=== PATIENT | female | born 1965 | race Caucasian/White ===

== ENCOUNTER 2019-02-01 18:38 | Inpatient (IN) | payer BC ==
[2019-02-01] MEDS ORDERED: nitroGLYCERIN DRIP* 25,000 MCG in PREMIX* 0 ML IV ONE (19:05)
[2019-02-01] MEDS ORDERED: Ondansetron INJ* 2 MG/ML VIAL IV ONE (19:05)
[2019-02-01] MEDS ORDERED: Heparin for STEMI(*) 5,000 UNITS/ML 1 ML VIAL IV ONE (19:05)
[2019-02-01] MEDS ORDERED: Morphine INJ* 10 MG/ML 1 ML CARPUJECT IV ONE (19:05)
[2019-02-01] MEDS ORDERED: Ticagrelor* 90 MG TAB PO ONE (19:05)
[2019-02-01] MEDS ORDERED: NS 0.9% 1000 ML** 1,000 ML IV ONE (19:05)
--- NOTE | 2019-02-01 19:06 | ED ---
HPI Chest Pain - HPI Summary HPI Summary: The patient is a 53 y/o F presenting to [facility] accompanied by with a chief complaint of mid-sternal CP that radiates to her anterior neck and throat onset approximately a month ago with gradual worsening of intermittent episodes of heaviness. She states that she has visited her PCP twice for the pain, who told her to come here; she has not yet had an appointment with her hospital mortician , but she has one scheduled soon. Today, she has had difficulty walking from her car into the building to work without stopping. She is currently in pain, rated 5/10 in severity. There are no aggravating or alleviating factors. She additionally c/o SOB, nausea without vomiting, mild left arm pain, and dizziness. She denies abd pain. No hx of diabetes or HTN, but has hx of DVT. FHx of cardiac disease. Nonsmoker. She is currently on abx for bronchitis and sinus infection from last week. - History of Current Complaint Chief Complaint: EDChestPainROMI Hx Obtained From: Patient Onset/Duration: Started Weeks Ago - osnet one month, Still Present Timing: Intermittent, Lasting Days - gradual worsening Initial Severity: Mild Current Severity: Moderate Pain Intensity: 5 Pain Scale Used: 0-10 Numeric Chest Pain Location: Mid Sternal Chest Pain Radiates: Yes Chest Pain Radiates To:: Neck - anterior Character: Heaviness Aggravating Factor(s): Nothing Alleviating Factor(s): Nothing Associated Signs and Symptoms: Positive: Chest Pain, Dizziness, Shortness of Breath, Nausea, Other: - mild pain in left arm. Negative: Abdominal Pain, Vomiting - Risk Factors Pulmonary Embolism Risk Factors: DVT - Allergy/Home Medications Allergies/Adverse Reactions: Allergies Allergy/AdvReac Type Severity Reaction Status Date / Time No Known Allergies Allergy Verified 01/13/19 10:40 Home Medications: Home Medications Doxycycline Hyclate 100 mg PO DAILY 02/01/19 [History Confirmed 02/01/19] Ventolin HFA Inhaler* 90 mcg INH Q6HR PRN 02/01/19 [History Confirmed 02/01/19] PMH/Surg Hx/FS Hx/Imm Hx Endocrine/Hematology History: Denies: Hx Diabetes Cardiovascular History: Reports: Hx Deep Vein Thrombosis - right side Denies: Hx Hypertension Respiratory History: Reports: Other Respiratory Problems/Disorders - OCCASIONAL ALLERGY, USES INHAILER NEEDED Musculoskeletal History: Reports: Other Musculoskeletal History - bunion - Cancer History Hx Chemotherapy: No Hx Radiation Therapy: No - Surgical History Surgery Procedure, Year, and Place: blood clot removal Infectious Disease History: No Infectious Disease History: Denies: Traveled Outside the [place] in Last 30 Days - Family History Known Family History: Positive: Cardiac Disease, Blood Disorder - blood clots, Other - Non-Hodgkin's lymphoma Negative: Hypertension, Diabetes - Social History Occupation: Employed Full-time Alcohol Use: Occasionally Hx Substance Use: No Substance Use Type: Reports: None Hx Tobacco Use: No Smoking Status (MU): Never Smoked Tobacco Review of Systems Positive: Chest Pain - mid-sternal radiating to anterior neck/throat Positive: Shortness Of Breath Positive: Nausea. Negative: Abdominal Pain, Vomiting Positive: Other - mild pain in arm Neurological: Other - dizziness All Other Systems Reviewed And Are Negative: Yes Physical Exam - Summary Physical Exam Summary: Appearance: Well-appearing, Well-nourished, appears to be uncomfortable in bed Skin: Warm, dry, no obvious rash Eyes: sclera anicteric, no conjunctival pallor ENT: mucous membranes moist, pharynx appears normal Neck: Supple, nontender Respiratory: Clear to auscultation, no signs of respiratory distress Cardiovascular: Normal S1, S2. No murmurs. Normal distal pulses in tibial and radial bilaterally. Abdomen: Soft, nontender, normal active bowel sounds present Musculoskeletal: Normal, Strength/ROM Intact Neurological: A&Ox3, awake and alert, mentation is normal, speech is fluent and appropriate Psychiatric: affect is normal, does not appear anxious or depressed Triage Information Reviewed: Yes Vital Signs On Initial Exam: Initial Vitals Temp Pulse Resp BP Pulse Ox 97.3 F 105 20 150/99 100 02/01/19 18:41 02/01/19 18:41 02/01/19 18:41 02/01/19 18:41 02/01/19 18:41 Vital Signs Reviewed: Yes Diagnostics - Vital Signs Vital Signs Temp Pulse Resp BP Pulse Ox 02/01/19 18:41 97.3 F 105 20 150/99 100 - Laboratory Result Diagrams: 02/02/19 05:28 02/02/19 05:28 Lab Statement: Any lab studies that have been ordered have been reviewed, and results considered in the medical decision making process. - Radiology CXR Radiology Interpretation Completed By: Radiologist Summary of Radiographic Findings: No active process. ED physician has reviewed this report. - EKG 18:49 Cardiac Rate: NL - 89 BPM EKG Rhythm: Sinus Rhythm EKG Comparison: Other - Change from previous EKG on 01/13/2019. Summary of EKG Findings: NSR at 89 BPM. T wave inversions and slight ST elevations in v1 and v2. 1906 Cardiac Rate: NL - 95 BPM EKG Rhythm: Sinus Rhythm EKG Comparison: No Significant Change - No change from previous EKG on 2018, at 1849. Summary of EKG Findings: T wave inversions and slight ST elevations in v1 and v2. Re-Evaluation - Re-Evaluation First Eval Re-Evaluation Time: 19:20 Change: Unchanged Comment: The patient was still having chest pain with some lightheadedness while hospital monitor was alarming. She felt better after the episode. She accepts admission. Chest Pain Course/Dx - Course Course Of Treatment: The patient is a 53 y/o F with a chief complaint of mid- sternal CP that radiates to her anterior neck and throat onset approximately a month ago with gradual worsening of intermittent episodes of heaviness. Today, she has had difficulty walking from her car into the building to work without stopping. There are no aggravating or alleviating factors. She additionally c/o SOB, nausea without vomiting, mild left arm pain, and dizziness. She denies abd pain. No hx of diabetes or HTN, but has hx of DVT. FHx of cardiac disease. Nonsmoker. PCP told her to come to ED; she has upcoming appt with hospital mortician. Upon physical examination, the patient seemed to appear uncomfortable. In the ED course, the patient was administered Ns, Aspirin, NTG, Heparin, Morphine, Zofran, and Brilinta. I spoke with Dr. Massey, cardiology at 1910, who states that the patient is having a STEMI given T wave inversions and ST elevations in v1 and v2 on the first EKG at 1849. At 191, STEMI was called. Follow up EKG at 190 showed no change from first. Blood work reveals elevated CK-MB and troponin of 0.53. CXR reveals no active process. Dr. Joe accepts the patient for admission at 191. The patient is diagnosed with STEMI. She agrees and understands the need for admission to [facility] at this time. Critical care time of 30 minutes. - Diagnoses Provider Diagnoses: STEMI (ST elevation myocardial infarction) During the Visit The Following Alert/Code Occurred: STEMI - called at 1910 - Provider Notifications Discussed Care Of Patient With: Bryan Massey - cardiology Time Discussed With Above Provider: 19:10 Instructed by Provider To: Other - I consulted with Dr. Massey concerning the patient's EKG; he states the patient is having a STEMI. I also consulted with Dr. Joe, who accepts the patient for admission at 191. - Critical Care Time Critical Care Time: 30-74 min - Critical Care Time of 30 minutes. Discharge - Sign-Out/Discharge Documenting (check all that apply): Patient Departure - Patient will be admitted to [facility] for further care under Dr. Degroot. All imaging exams completed and their final reports reviewed: Yes Patient Received Moderate/Deep Sedation with Procedure: No - Discharge Plan Condition: Guarded Disposition: ADMITTED TO [facility] - Billing Disposition and Condition Condition: GUARDED Disposition: Admitted to [facility] - Attestation Statements Document Initiated by Reyna: Yes Documenting Scribe: Funmilayo Anderson Provider For Whom Reyna is Documenting (Include Credential): Dr. Marek Ca MD Scribe Attestation: I, katharine Newed for Dr. Marek Ca MD on 02/02/19 at 0604. Scribe Documentation Reviewed: Yes Provider Attestation: The documentation as recorded by the Funmilayo jade accurately reflects the service I personally performed and the decisions made by me, Dr. Marek Ca MD Status of Scribe Document: Viewed
[2019-02-01] MEDS ORDERED: Morphine 10 MG/ML VIAL (1 ml) ONE (19:12)
[2019-02-01] MEDS ORDERED: Nitroglycerin TAB 0.4 MG* 0.4 MG TAB ONE (19:14)
[2019-02-01] MEDS ORDERED: fentaNYL* 50 MCG/ML 2 ML VIAL (100 MCG VIAL) ONE (19:19)
[2019-02-01] MEDS ORDERED: Midazolam* 1 MG/ML 5 ML VIAL (5 MG) ONE (19:19)
[2019-02-01] MEDS ORDERED: Iohexol 350 (CONTRAST) 200 ML MDV IV ONE ×2 (19:20→19:21)
[2019-02-01] MEDS ORDERED: Lidocaine 1% INJ* 10 MG/ML 30 ML SDV ONE (19:20)
[2019-02-01] MEDS ORDERED: nitroGLYCERIN DRIP* 25,000 MCG/250 ML BTL ONE (19:20)
[2019-02-01] MEDS ORDERED: Heparin 2 UNITS/ML IVPREMIX* 3,000 UNIT/1,500 ML BAG IV ONE (19:21)
[2019-02-01] MEDS ORDERED: VERAPAMIL 2.5 MG/ML 2 ML VIAL ** 5 mg/2 ml ONE (19:21)
--- OUTSIDE RECORDS SUMMARY | 2019-02-01 19:21 | XMS REPORT | Continuity of Care Document ---
:1965 External Reference #:[id number] Author Name Sammie Mullins M.D. Address [address] [place] [address] Care Team Providers Name Role Phone Tapan Gould M.D. Primary Care Physician Unavailable Payers Date Identification Numbers Payment Provider Subscriber Effective: 2002 Policy Number: [id number] Iraida Gil Expires: 2012 Group Name: [employer] [address] [address] PayID: [id number] WESLEY Munroe [id number] Effective: 2012 Policy Number: [id number] Iraida Gil Expires: 2013 Group Name: [employer] [address] [address] PayID: [id number] W[place]LEY Munroe [id number] Effective: 2013 Policy Number: [id number] Iraida Gil Group Name: [employer] [address] [address] PayID: [id number] WESLEY Munroe [address] Advance Directives Description No Information Available Problems Date Description Provider Status Onset: 10/15/2011 Deep venous thrombosis of Ashley Grissom M.D. Active peroneal vein Family History Date Family Member(s) Observation Comments Father Unknown Mother Diabetes CONTROLLED WITH DIET AND EXERCISE Maternal Grandmother DVT with many clots in legs, arms and PE's. 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 with full Blegen, glass of M.D. water x 10 days for bronchitis/ sinusitis Ventolin HFA 01/18/ Active Aerosol 108(90Bas 18uni Inhale 2 Tapan 2018 e) ts Puffs Every Gould, mcg/Act 4-6 Hours as M.D. Needed For Wheezing Or Shotness Of Breath Fexofenadine 05/23/ Active Tablets 180mg 90tab Take One Tapan HCL 2009 s Tablet By Gould, Mouth Daily M.D. Fluoxetine HCL / Active Capsules 20mg Take One Unknown 0000 Capsule By Mouth Every Day Azithromycin 11/27/ Hx Tablets 250mg 6tabs 2 tabs J06.9 [facility] 2018 - today. 1 tab Shortle, 01/13/ daily for [employer] 2019 the following 4 days. Cheratussin ac 11/27/ Hx Solution 100-10mg/ 473ml 10 J06.9 [facility] 2018 - 5ML milliliters Shortle, 01/13/ every 4 to 6 [employer] 2019 hours as needed; maximum daily dose: 60 ml/day Azithromycin 01/07/ Hx Tablets 250mg 6tabs take 2 J18.9 Angelique 2016 - tablets Roxy, 01/13/ today then 1 [facility] 2019 tablet daily for the next 4 days Tessalon 05/09/ Hx Capsules 100mg 30cap take one J20.9 Tapan Sánchez 2015 - s capsule by Bryanna, 08/07/ mouth every M.D. 2015 6 hours as needed (cough) Azithromycin 05/09/ Hx Tablets 250mg 6tabs 2 by mouth J20.9 Tapan 2015 - every day Bryanna, 08/07/ day 1, then M.D. 2015 1 by mouth every day days 2-5 Guaifenesin-Co 05/09/ Hx Syrup 100-10mg/ 240ml 1-2 teaspoon J20.9 Angelique sethi 2015 - 5ML by mouth Roxy, 11/27/ every 4 [facility]ACT[facility] 2018 hours as needed Asmanex 10/06/ Hx Aerosol 220mcg/In 1unit 1 inhalation [facility] 2014 - h s once daily Shortle, Metered Doses 01/13/ in the [employer] 2019 evening Asmanex 10/06/ Hx Aerosol 220mcg/In Angelique Twisthaler 14 2014 - h Roxy, Metered Doses 11/27/ [facility]SE [facility]ACTITION[facility] 2018 Augmentin 09/15/ Hx Tablets 875-125mg 20tab 1 tab by J06.9 Jg 2014 - s mouth twice Michael 10/06/ daily for III, 2014 ten days [facility]ACT[facility] Azithromycin 09/05/ Hx Tablets 250mg 6tabs take 2 tab J06.9 Jg 2015 - by mouth on [place] 10/06/ day 1 III2014 followed by [facility]SE [facility]ACTITION[facility] 1 tab by mouth daily for 4 additional days Cheratussin ac 09/05/ Hx Syrup 100-10mg/ 118ml 1-2 teaspoon J06.9 Jg 2015 - 5ML by mouth [place] 10/06/ every 6 III, 2015 hours as [facility] NURSE PRACTITION[facility]-C needed for cough Prednisone 03/30/ Hx Tablets 50mg 5tabs one pill by Jg 2014 - mouth daily Michael 10/06/ for 5 days III, 2014 [facility]SE [facility]ACT[facility] Proair HFA 03/23/ Hx Aerosol 108(90Bas 1unit 2 puffs Tapan 2013 - ) s every 4-6 Gould, 01/13/ mcg/Act hours as M.D. 2019 needed wheezing or shortness of breath Guaifenesin/Co 03/16/ Hx Syrup 100-10mg/ 240ml 1 - 2 466.0 Angelique sethi 2013 - 5ML teaspoon po Roxy, 10/06/ q 4 hours [facility] NURSE PRACTITION[facility]-C 2014 prn cough, causes drowsiness Amoxicillin/Po 09/23/ Hx Tablets 875-125mg 20tab take 1 Angelique smith 2011 - s tablet bid x Roxy, Clavulanate 10/06/ 10 days [facility]SE [facility]ACTITION[facility]-C 2015 Benzonatate 09/16/ Hx Capsules 200mg 30cap one po tid 466.0 Angelique 2011 - s prn cough Roxy, 10/06/ [facility]SE [facility]ACTITION[facility] 2015 Coumadin 10/30/ Hx Tablets 5mg 50tab 5mg M,W,F Tapan 2010 - s and 7.5mg Bryanna, 10/06/ others Or as M.D. 2015 Directed Lovenox 10/22/ Hx Solution 60mg/0.6M 10uni 60 mg sq bid Tapan 2010 - L ts Bryanna, 10/06/ M.D. 2015 Fluticasone 09/19/ Hx Suspension 50mcg/Act 16uni use 1-2 Tapan Propionate 2010 - ts sprays in Gould, 01/13/ each nostril M.D. 2019 once daily as needed Ranitidine HCL 07/31/ Hx Capsules 150mg 60cap 1 po bid prn 564.1 Dania 2009 - s stomach R. Storm, 10/06/ pain/bloatin [facility] NURSE PRACTITIONER-C 2015 g Flonase 09/24/ Hx Suspension 50mcg/Act 1mont 1-2 Sprays Dania 2006 - h Each Nostril R. Storm, 09/19/ qd prn [facility] NURSE PRACTITIONER-C 2010 Albuterol 05/12/ Hx Aerosol 90mcg/Dos 1unit 2 Puffs Q4HR Tapan 2007 - e s prn Bryanna, 07/31/ M.D. 2009 Fexofenadine 04/10/ Hx Tablets 180mg 90tab 1 qd Tapan 2006 - s Bryanna, 05/23/ M.D. 2009 Flonase NS 04/03/ Hx [place] 50mcg 3unit 1-2 sprays Tapan 2004 - s each nostril Bryanna, 09/24/ qd M.D. 2007 Zithromax 11/10/ Hx Tablets 500mg 7tabs one po qd Sammie 2003 - for 7 days P. 04/03/ for possible Blegen, 2005 pertussis M.D. coverage Robitussin A-c 11/10/ Hx Syrup 100mg;10m 4Oz one -two Sammie 2003 - g/5ML teaspoons po P. 04/03/ q 4hrs prn Blegen, 2005 cough- M.D. causes drowsiness Tessalon 11/07/ Hx Capsules 200mg 30cap use 1 cap up Angelique 2004 - s to tid for Moizdarlyn, 05/12/ cough M.D. 2006 Cipro 09/05/ Hx Tablets 250mg 6tabs One bid X 3 Tapan 2003 - Days Gould, 10/05/ M.D. 2003 Clarinex 11/25/ Hx 5mg 30uni one po qd Tapan 2002 - ts Gould, 04/10/ M.D. 2005 Claritin 11/16/ Hx Tablets 10mg 30tab One qd Angelique 2000 - s Marta, 11/25/ M.D. 12/13/ Hx Tablets 1-20mg-lizette Johnson, 0000 - g Unique 2014 Azithromycin / Hx Tablets 250mg 6tabs take 2 466.0 Angelique 0000 - tablets Roxy, then 1 [facility] NURSE PRACTITIONER-C 2015 tablet daily for the next 4 days Medications Administered in Office Medication Date Status Form Strength Qnty SIG Indications Ordering Provider TB,Intradermal Administered Injection Angelique (PPD, Mantoux) 002 Olya Lozano Immunizations CPT Code Status Date Vaccine Lot # [id number] Given 08/23/2015 Influenza Virus Vaccine, Quadrivalent, 3 Yr > Quad, Preserv Free [id number] Given 09/12/2011 Tdap (Adacel) [id number] Given 09/07/2002 Influenza Virus Vaccine, 3 Yrs And Above Vital Signs Date Vital Result Comment 01/25/2019 11:20am Weight 143.00 lb Weight 64.865 kg BP Systolic 120 mmHg BP Diastolic 90 mmHg Heart Rate 112 /min Body Temperature 97.1 F Respiratory Rate 24 /min O2 % BldC Oximetry 99 % Peak Flow Meter 350 01/13/2019 8:24am Weight 143.00 lb Weight 64.865 kg BP Systolic 110 mmHg BP Diastolic 70 mmHg Heart Rate 92 /min Body Temperature 97.8 F Respiratory Rate 16 /min O2 % BldC Oximetry 99 % 11/27/2017 3:38pm Weight 149.00 lb Weight 67.586 kg BP Systolic 128 mmHg BP Diastolic 78 mmHg Heart Rate 90 /min Body Temperature 98.9 F Respiratory Rate 15 /min O2 % BldC Oximetry 98 % 01/07/2017 4:50pm Weight 144.00 lb Weight 65.318 kg Heart Rate 104 /min Body Temperature 97.3 F Respiratory Rate 16 /min O2 % BldC Oximetry 98 % 05/09/2016 4:49pm Weight 141.00 lb Weight 63.958 kg BP Systolic 100 mmHg BP Diastolic 70 mmHg Heart Rate 100 /min Body Temperature 98.4 F O2 % BldC Oximetry 99 % 10/06/2015 4:28pm Weight 136.00 lb Weight 61.690 kg BP Systolic 124 mmHg BP Diastolic 76 mmHg Heart Rate 76 /min Height 63 inches 5'3" BMI (Body Mass Index) 24.1 kg/m2 09/15/2015 4:33pm Weight 137.00 lb Weight 62.143 kg BP Systolic 86 mmHg BP Diastolic 60 mmHg Heart Rate 102 /min Body Temperature 98.2 F O2 % BldC Oximetry 99 % 09/05/2015 5:01pm Weight 140.00 lb Weight 63.504 kg BP Systolic 140 mmHg BP Diastolic 84 mmHg Heart Rate 64 /min Body Temperature 97.8 F O2 % BldC Oximetry 98 % 03/30/2014 4:43pm Weight 139.00 lb Weight 63.050 kg BP Systolic 132 mmHg BP Diastolic 80 mmHg Heart Rate 108 /min Body Temperature 97.6 F O2 % BldC Oximetry 98 % 03/16/2014 3:51pm Weight 137.00 lb Weight 62.143 kg BP Systolic 140 mmHg BP Diastolic 84 mmHg Heart Rate 92 /min O2 % BldC Oximetry 97 % 08/30/2013 4:30pm Weight 138.00 lb Weight 62.597 kg BP Systolic 110 mmHg BP Diastolic 70 mmHg Heart Rate 72 /min 08/04/2013 4:39pm Weight 138.00 lb Weight 62.597 kg BP Systolic 100 mmHg BP Diastolic 66 mmHg Heart Rate 88 /min Height 63 inches 5'3" BMI (Body Mass Index) 24.4 kg/m2 05/17/2013 4:36pm Weight 141.00 lb Weight 63.958 kg BP Systolic 102 mmHg BP Diastolic 80 mmHg Heart Rate 84 /min 04/27/2013 4:28pm Weight 144.00 lb Weight 65.318 kg BP Systolic 112 mmHg BP Diastolic 64 mmHg Heart Rate 76 /min 09/16/2012 4:25pm Weight 144.00 lb Weight 65.318 kg BP Systolic 110 mmHg BP Diastolic 76 mmHg Heart Rate 108 /min Body Temperature 97.9 F O2 % BldC Oximetry 99 % 10/24/2011 11:51am Weight 138.00 lb Weight 62.597 kg BP Systolic 140 mmHg BP Diastolic 70 mmHg Heart Rate 116 /min Body Temperature 98.9 F 10/15/2011 12:19pm Weight 140.00 lb With Leg Brace Weight 63.504 kg BP Systolic 110 mmHg BP Diastolic 80 mmHg Heart Rate 104 /min Body Temperature 98.3 F 09/12/2011 4:29pm Weight 138.00 lb Weight 62.597 kg BP Systolic 118 mmHg BP Diastolic 82 mmHg Heart Rate 100 /min Body Temperature 98.9 F Height 62.75 inches 5'2.75" BMI (Body Mass Index) 24.6 kg/m2 07/31/2010 4:05pm Weight 130.00 lb Weight 58.968 kg BP Systolic 118 mmHg BP Diastolic 72 mmHg Heart Rate 78 /min 06/09/2007 4:39pm Weight 142.00 lb Weight 64.411 kg BP Systolic 118 mmHg BP Diastolic 68 mmHg Body Temperature 98.0 F oral 05/12/2007 4:56pm Weight 140.00 lb Weight 63.504 kg BP Systolic 110 mmHg BP Diastolic 74 mmHg Heart Rate 92 /min Body Temperature 97.5 F O2 % BldC Oximetry 99 % 05/21/2006 4:30pm Weight 141.00 lb Weight 63.958 kg BP Systolic 110 mmHg BP Diastolic 68 mmHg Heart Rate 72 /min 11/10/2004 11:28am Weight 145.00 lb Weight 65.772 kg Body Temperature 97.3 F 09/05/2004 4:36pm Weight 139.00 lb Weight 63.050 kg BP Systolic 108 mmHg BP Diastolic 60 mmHg Body Temperature 97.5 F 02/20/2004 9:52am Weight 141.00 lb Weight 63.958 kg BP Systolic 136 mmHg BP Diastolic 82 mmHg Heart Rate 103 /min 01/31/2003 4:11pm Weight 141.00 lb Weight 63.958 kg BP Systolic 110 mmHg BP Diastolic 80 mmHg 07/12/2002 4:17pm BP Systolic 110 mmHg BP Diastolic 68 mmHg Heart Rate 72 /min Results Test Date Facility Test Result H/L Range Note Inr/Protime [facility] Inr 0.98 N 0.77- 1.02 9 [phone] Laboratory test [facility] D Dimer < 200 ng /mL N Less Than 1 finding 9 [phone] Quantitative 230 CBC Auto Diff [facility] White Blood Count 7.7 10^3/uL N 3.5-10.8 9 [phone] Red Blood Count 4.65 10^6/uL N 4.00-5.40 Hemoglobin 14.7 g/dL N 12.0-16.0 Hematocrit 42 % N 35-47 Mean Corpuscular Volume 90 fL N 80-97 Mean Corpuscular Hemoglobin 32 pg High 27-31 Mean Corpuscular HGB Conc 35 g/dL N 31-36 Red Cell Distribution Width 13 % N 10.5-15 Platelet Count 243 10^3/uL N 150-450 Mean Platelet Volume 7.9 fL N 7.4-10.4 Abs Neutrophils 5.5 10^3/uL N 1.5-7.7 Abs Lymphocytes 1.8 10^3/uL N 1.0-4.8 Abs Monocytes 0.4 10^3/uL N 0-0.8 Abs Eosinophils 0 10^3/uL N 0-0.6 Abs Basophils 0 10^3/uL N 0-0.2 Abs Nucleated RBC 0 10^3/uL Granulocyte % 71.5 % Lymphocyte % 22.9 % Monocyte % 5.0 % Eosinophil % 0.3 % Basophil % 0.3 % Nucleated Red Blood Cells % 0 Laboratory test 01/13/2019 [facility] Lactic Acid 0.8 mmol/L N 0.5-2.0 2 finding [phone] B-Type Natriuretic Peptide BNP 9 pg/mL <=100 Troponin-I (TnI) 0.00 ng/mL <0.04 3 Comp Metabolic Panel 01/13/2019 [facility] Sodium 138 mmol/L N 135-145 [phone] Potassium 4.2 mmol/L N 3.5-5.0 Chloride 105 mmol/L N 101-111 Co2 Carbon Dioxide 26 mmol/L N 22-32 Anion Gap 7 mmol/L N 2-11 Glucose 107 mg/dL High 70-100 Blood Urea Nitrogen 13 mg/dL N 6-24 Creatinine 0.70 mg/dL N 0.51-0.95 BUN/Creatinine Ratio 18.6 N 8-20 Calcium 9.7 mg/dL N 8.6-10.3 Total Protein 7.1 g/dL N 6.4-8.9 Albumin 4.7 g/dL N 3.2-5.2 Globulin 2.4 g/dL N 2-4 Albumin/Globulin Ratio 2.0 N 1-3 Total Bilirubin 0.50 mg/dL N 0.2-1.0 Alkaline Phosphatase 57 U/L N 34-104 Alt 11 U/L N 7-52 Ast 14 U/L N 13-39 Egfr Non- 86.9 >60 Egfr 105.1 >60 4 Urine DIP 10/06/2015 In House Lab Specific [place] 1.015 1.01-1.02 (607)- - Urine pH 7 High 5-6 Leukocytes ++ Neg Urine Nitrites NEG Neg Total Protein, Urine NEG Neg Urine Glucose NORM Norm Urine Ketones NEG Neg Urobilinogen NORM Norm Urine Bilirubin NEG Neg Urine Blood NEG Neg CBC Auto Diff 09/22/2015 [facility] White Blood 9.2 10^3/uL N 4.8-10.8 [phone] Count Red Blood Count 4.97 10^6/uL N 4.0-5.4 Hemoglobin 15.6 g/dL N 12.0-16.0 Hematocrit 47 % N 35-47 Mean Corpuscular Volume 94 fL N 80-97 Mean Corpuscular Hemoglobin 31 pg N 27-31 Mean Corpuscular HGB Conc 33 g/dL N 31-36 Red Cell Distribution Width 13 % N 10.5-15 Platelet Count 319 10^3/uL N 150-450 Mean Platelet Volume 9 um3 N 7.4-10.4 Abs Neutrophils 5.0 10^3/uL N 1.5-7.7 Abs Lymphocytes 3.3 10^3/uL N 1.0-4.8 Abs Monocytes 0.7 10^3/uL N 0-0.8 Abs Eosinophils 0.2 10^3/uL N 0-0.6 Abs Basophils 0.1 10^3/uL N 0-0.2 Abs Nucleated RBC 0 10^3/uL N Granulocyte % 54.6 % N 38-83 Lymphocyte % 35.9 % N 25-47 Monocyte % 7.3 % N 1-9 Eosinophil % 1.6 % N 0-6 Basophil % 0.6 % N 0-2 Nucleated Red Blood Cells % 0 N Comp Metabolic Panel 09/22/2015 [facility] Sodium 137 mmol/L N 133-145 [phone] Potassium 4.3 mmol/L N 3.5-5.0 Chloride 102 mmol/L N 101-111 Co2 Carbon Dioxide 30 mmol/L N 22-32 Anion Gap 5 mmol/L N 2-11 Glucose 98 mg/dL N 70-100 Blood Urea Nitrogen 14 mg/dL N 6-24 Creatinine 1.06 mg/dL High 0.51-0.95 BUN/Creatinine Ratio 13.2 N 8-20 Calcium 9.7 mg/dL N 8.6-10.3 Total Protein 6.9 g/dL N 6.4-8.9 Albumin 4.7 g/dL N 3.2-5.2 Globulin 2.2 g/dL N 2-4 Albumin/Globulin Ratio 2.1 N 1-3 Total Bilirubin 0.40 mg/dL N 0.2-1.0 Alkaline Phosphatase 53 U/L N 34-104 Alt 11 U/L N 7-52 Ast 15 U/L N 13-39 Egfr Non- 54.4 N >60 Egfr 70.0 N >60 5 Laboratory test 09/22/2015 [facility] TSH (Thyroid 1.29 ?IU/mL N 0.34-5.60 finding [phone] Stimulating Horm) Iris Brown 09/22/2015 [facility] Ebv Capsid Ag Positive N Negative Comprehensive [phone] IgG Ab Ebv Capsid Ag IgM Ab Negative N Negative Iris-Brown Nuclear Antigen Positive N Negative Iris-Brown Virus Interp See Comment N 6 CMV Igg/Igm 09/22/2015 [facility] Cytomegalovirus IgG Positive N Negative 7 [phone] Antibody Cytomegalovirus IgM Antibody Negative N Negative Laboratory 09/22/2015 [facility] Lyme Disease Negative N Negative 8 test finding [phone] Serology Surgical 10/01/2013 [facility] S RUN DATE: 9 Pathology [phone] 10/04/ <SEE NOTE> Human 07/27/2013 [facility] Human See Comment 10 Papilloma [phone] Papillomavirus Virus Source Human Papillomavirus High Risk Negative Negative 11 PT W/Inr 04/09/2012 [facility] Inr 2.70 High 0.88- 1.13 12 [phone] Protime 33.5 SEC High 10.3-13.5 13 PT W/Inr 03/12/2012 [facility] Inr 2.97 High 0.88- 1.13 14 [phone] Protime 37.0 SEC High 10.3-13.5 15 PT W/Inr 02/28/2012 [facility] Inr 3.22 High 0.88- 1.13 16 [phone] Protime 40.2 SEC High 10.3-13.5 17 PT W/Inr 01/30/2012 [facility] Inr 2.26 High 0.88- 1.13 18 [phone] Protime 27.6 SEC High 10.3-13.5 19 PT W/Inr 01/01/2012 [facility] Inr 3.02 High 0.88- 1.13 20 [phone] Protime 37.3 SEC High 10.3-13.5 21 PT W/Inr 12/18/2011 [facility] Inr 1.92 High 0.88- 1.13 22 [phone] Protime 23.3 SEC High 10.3-13.5 23 PT W/Inr 12/12/2011 [facility] Inr 3.02 High 0.88- 1.13 24 [phone] Protime 37.3 SEC High 10.3-13.5 25 PT W/Inr 11/14/2011 [facility] Inr 2.27 High 0.88- 1.13 26 [phone] Protime 27.7 SEC High 10.3-13.5 27 PT W/Inr 11/07/2011 [facility] Inr 1.77 High 0.88- 1.13 28 [phone] Protime 21.4 SEC High 10.3-13.5 29 PT W/Inr 10/29/2011 [facility] Inr 1.75 High 0.88- 1.13 30 [phone] Protime 21.1 SEC High 10.3-13.5 31 Laboratory test 10/29/2011 [facility] Glucose 93 mg/ dL 70-100 finding [phone] Lipid Profile 10/29/2011 [facility] Triglyceride 80 mg/dL 40-200 (Trig/Chol/HDL) [phone] Cholesterol 197 mg/dL Less Than 200 32 High Density Lipoprotein 44 mg/dL 40-60 33 Cholesterol/HDL Ratio 4.48 AVERAGE High 1-4.44 Low Density Lipoprotein 137 mg/dL High Less Than 100 34 PT W/Inr 10/24/2011 [facility] Inr 1.85 High 0.88- 1.13 35 [phone] Protime 23.2 SEC High 10.3-13.5 36 PT W/Inr 10/22/2011 [facility] Inr 1.63 High 0.88- 1.13 37 [phone] Protime 19.6 SEC High 10.3-13.5 38 Hemoglobin/Hematacrit 10/18/2011 [facility] Hemoglobin 14.6 12.0-16.0 [phone] g/dL Hematocrit 42 % 35-47 PT W/Inr 10/18/2011 [facility] Inr 1.13 0.88-1.13 39 [phone] Protime 13.4 SEC 10.3-13.5 40 Comp Metabolic Panel 09/18/2011 [facility] Sodium 140 mmol/L 135-145 [phone] Potassium 4.1 mmol/L 3.5-5.0 Chloride 103 mmol/L 101-111 Co2 (Carbon Dioxide) 30.0 mmol/L 22-32 Anion Gap 7.0 mmol/L 2-11 41 Glucose 106 mg/dL High 70-100 BUN 7 mg/dL 6-24 Creatinine 0.7 mg/dL 0.50-1.40 One Over Creatinine 1.42 BUN/Creatinine Ratio 10.0 8-20 Calcium 9.7 mg/dL 8.1-9.9 Total Protein 6.9 GM/DL 6.2-8.1 Albumin 3.9 GM/DL 3.6-5.4 Globulin 3.0 GM/DL 2-4 Albumin/Globulin Ratio 1.3 1-3 Bilirubin Total 0.5 mg/dL 0.4-1.5 42 Alkaline Phosphatase 40 U/L 30-110 Alt (SGPT) 14 U/L 14-54 Ast (Sgot) 16 U/L 12-42 eGFR Non- 89.3 > 60 eGFR 114.9 > 60 43 Manual Differential 09/12/2011 [facility] Polysegmented 40 % 38-83 [phone] Neutrophil Band Neutrophil 1 % 0-8 Lymphocyte 49 % High 25-47 Monocyte 7 % 0-13 Atypical Lymph 3 % 0-6 Absolute Neutrophil Count 2.8 RBC Morphology NORMAL CBC Auto Diff 09/12/2011 [facility] White Blood 6.72 CUMM 4.8-10.8 44 [phone] Count Red Cell Count 4.44 CUMM 4.2-5.4 Hemoglobin 14.5 g/dL 12.0-16.0 Hematocrit 42 % 35-47 Mean Corpuscular Volume 95 um3 79-97 Mean Corpuscular Hemoglob 33 pg High 27-31 Mean Corpuscular HGB Cone 35 g/dL 32-36 Redcell Distribution WDTH 13 % 10.5-15 Platelet Count 223 CUMM 150-450 Mean Platelet Volume 10.7 um3 High 7.4-10.4 Comments UWBC Urine DIP 09/12/2011 In House Lab Leukocytes NEG Neg (607)- - Urine Nitrites NEG Neg Urine pH 5-6 5-6 Total Protein, Urine NEG Neg Urine Glucose NORM Norm Urine Ketones NEG Neg Urobilinogen NORM Norm Urine Bilirubin NEG Neg Urine Blood NEG Neg Specific [place] N/A Low 1.01-1.02 PT W/Inr 09/12/2011 [facility] Inr 0.86 0.82-1.17 45 [phone] Protime 10.1 SEC Low 10.2-14.8 46 Laboratory test 09/12/2011 [facility] PTT (Aptt) 21.7 Low 25.15-38.53 finding [phone] Urine DIP 09/05/2004 In House Lab Leukocytes 1+ High Neg (607)- - Urine Nitrites NEG Neg Urine pH 5 5-6 Total Protein, Urine NEG Neg Urine Glucose NORM Norm Urine Ketones NEG Neg Urobolinogen NORM Norm Urine Bilirubin NEG Neg Urine Blood NEG Neg Specific [place] NA Low 1.01-1.02 1 Please note: The following may produce a false positive D Dimer test: - Rheumatoid factor greater than 60 IU/ml - Plasma hemoglobin greater than 0.05 gm/dl - Bilirubin greater than 50 mg/dl - Lipids greater than 1000 mg/dl - FDP greater than 20 ug/ml 2 [facility] Severe Sepsis and Septic Shock Management Bundle Measure requires all lactic acids initially measuring >2.0 mmol/L be repeated. 3 Troponin-I testing on Plasma Separator Tubes (PST) has a known false positive rate of 0.20-0.40%. All positive troponins reflex immediate secondary confirmatory testing. 4 Because ethnic data is not always readily available, this report includes an eGFR for both -Americans and non- Americans. The National Kidney Disease Education Program (NKDEP) does not endorse the use of the MDRD equation for patients that are not between the ages of 18 and 70, are , have extremes of body size, muscle mass, or nutritional status, or are non- or non-. According to the National Kidney Foundation, irrespective of diagnosis, the stage of the disease is based on the level of kidney function: Stage Description GFR(mL/min/1.73 m(2)) 1 Kidney damage with normal or decreased GFR 90 2 Kidney damage with mild decrease in GFR 60-89 3 Moderate decrease in GFR 30-59 4 Severe decrease in GFR 15-29 5 Kidney failure <15 (or dialysis) 5 Because ethnic data is not always readily available, this report includes an eGFR for both -Americans and non- Americans. The National Kidney Disease Education Program (NKDEP) does not endorse the use of the MDRD equation for patients that are not between the ages of 18 and 70, are , have extremes of body size, muscle mass, or nutritional status, or are non- or non-. According to the National Kidney Foundation, irrespective of diagnosis, the stage of the disease is based on the level of kidney function: Stage Description GFR(mL/min/1.73 m(2)) 1 Kidney damage with normal or decreased GFR 90 2 Kidney damage with mild decrease in GFR 60-89 3 Moderate decrease in GFR 30-59 4 Severe decrease in GFR 15-29 5 Kidney failure <15 (or dialysis) 6 RESULT: Results suggest past infection. ADDITIONAL INFORMATION In most populations, at least 90% of the adult population will have been infected with EBV sometime in the past and therefore, will be positive for anti-VCA/IgG and anti- EBNA. Antibodies to EBNA develop 6-8 weeks after primary infection and remain present for life. Presence of VCA/ IgM antibodies indicates recent primary infection with EBV. Test Performed by: [facility] [place] [address] Disability Program Navigator: Rudy Field II, M.D., Ph.D. 7 Test Performed by: [facility] [place] [address] Disability Program Navigator: Rudy Field II, M.D., Ph.D. 8 Serologic response to B. burgdorferi infection is not detected, but cannot rule out early infection during which low or undetectable antibody levels to B. burgdorferi may be present. If clinically indicated, a new serum specimen should be submitted in 7-14 days. Test Performed by: [facility] [place] [address] Disability Program Navigator: Rudy Field II, M.D., Ph.D. 9 RUN DATE: 10/04/13 [facility] LIVE PAGE 1 RUN TIME: [address] [place] [id number] Specimen Inquiry Name: ROSE GIL : [address]: Min Fuller MD Acct: [id number] Unit: [id number] AGE: 48 Location: [facility] Re10/01/13 SEX: F Status: REG REF SPEC: [id number] YASMINE: 10/01/13- SUBM DR: Min Fuller MD REQ: [id number] RECD: 10/01/13-1151 STATUS: HARPAL CALDERON DR: Tapan Gould MD _ ORDERED: LEVEL IV FINAL DIAGNOSIS Colon, at 10 cm., biopsy: Hyperplastic polyp. CLINICAL HISTORY Screening colonoscopy. POST-OPERATIVE DIAGNOSIS Screening colonoscopy to cecum. One polyp - small at 10 cm. Follow up in ten years. GROSS DESCRIPTION The specimen is received in formalin labeled Rose Gil, Biopsy Colon Polyp at 10 cm. and consists of a 0.3 x 0.2 x 0.2 cm. portion of white-bruno tissue. Submitted entirely, one cassette. Signed (signature on file) Yoni Pickett MD 1254 END OF REPORT * ML=Testing performed at Main Lab DEPARTMENT OF PATHOLOGY, [address] [place] [address] Yoni Pickett M.D. Director [facility] Permit #[id number] RESULT: Ectocervical/Endocervical 11 For types 16, 18, 31, 33, 35, 39, 45, 51, 52, 56, 58, 59 and 68. Test Performed by: [address] [address] Disability Program Navigator: Kasi Durán III, M.D. 12 Recommended INR for Patients on Oral Anticoagulants Prophylaxis 2.0 - 3.0 Treatment of thrombosis 2.0 - 3.0 Prevention of embolism 2.0 - 3.0 Prevention of embolism from prosthetic heart valves 2.5 - 3.5 13 DIAGNOSIS,TREATMENT,AND THERAPY MUST BE BASED ON THE INR VALUE ALONE. 14 Recommended INR for Patients on Oral Anticoagulants Prophylaxis 2.0 - 3.0 Treatment of thrombosis 2.0 - 3.0 Prevention of embolism 2.0 - 3.0 Prevention of embolism from prosthetic heart valves 2.5 - 3.5 15 DIAGNOSIS,TREATMENT,AND THERAPY MUST BE BASED ON THE INR VALUE ALONE. 16 Recommended INR for Patients on Oral Anticoagulants Prophylaxis 2.0 - 3.0 Treatment of thrombosis 2.0 - 3.0 Prevention of embolism 2.0 - 3.0 Prevention of embolism from prosthetic heart valves 2.5 - 3.5 17 DIAGNOSIS,TREATMENT,AND THERAPY MUST BE BASED ON THE INR VALUE ALONE. 18 Recommended INR for Patients on Oral Anticoagulants Prophylaxis 2.0 - 3.0 Treatment of thrombosis 2.0 - 3.0 Prevention of embolism 2.0 - 3.0 Prevention of embolism from prosthetic heart valves 2.5 - 3.5 19 DIAGNOSIS,TREATMENT,AND THERAPY MUST BE BASED ON THE INR VALUE ALONE. 20 Recommended INR for Patients on Oral Anticoagulants Prophylaxis 2.0 - 3.0 Treatment of thrombosis 2.0 - 3.0 Prevention of embolism 2.0 - 3.0 Prevention of embolism from prosthetic heart valves 2.5 - 3.5 21 DIAGNOSIS,TREATMENT,AND THERAPY MUST BE BASED ON THE INR VALUE ALONE. 22 Recommended INR for Patients on Oral Anticoagulants Prophylaxis 2.0 - 3.0 Treatment of thrombosis 2.0 - 3.0 Prevention of embolism 2.0 - 3.0 Prevention of embolism from prosthetic heart valves 2.5 - 3.5 23 DIAGNOSIS,TREATMENT,AND THERAPY MUST BE BASED ON THE INR VALUE ALONE. 24 Recommended INR for Patients on Oral Anticoagulants Prophylaxis 2.0 - 3.0 Treatment of thrombosis 2.0 - 3.0 Prevention of embolism 2.0 - 3.0 Prevention of embolism from prosthetic heart valves 2.5 - 3.5 25 DIAGNOSIS,TREATMENT,AND THERAPY MUST BE BASED ON THE INR VALUE ALONE. 26 Recommended INR for Patients on Oral Anticoagulants Prophylaxis 2.0 - 3.0 Treatment of thrombosis 2.0 - 3.0 Prevention of embolism 2.0 - 3.0 Prevention of embolism from prosthetic heart valves 2.5 - 3.5 27 DIAGNOSIS,TREATMENT,AND THERAPY MUST BE BASED ON THE INR VALUE ALONE. 28 Recommended INR for Patients on Oral Anticoagulants Prophylaxis 2.0 - 3.0 Treatment of thrombosis 2.0 - 3.0 Prevention of embolism 2.0 - 3.0 Prevention of embolism from prosthetic heart valves 2.5 - 3.5 29 DIAGNOSIS,TREATMENT,AND THERAPY MUST BE BASED ON THE INR VALUE ALONE. 30 Recommended INR for Patients on Oral Anticoagulants Prophylaxis 2.0 - 3.0 Treatment of thrombosis 2.0 - 3.0 Prevention of embolism 2.0 - 3.0 Prevention of embolism from prosthetic heart valves 2.5 - 3.5 31 DIAGNOSIS,TREATMENT,AND THERAPY MUST BE BASED ON THE INR VALUE ALONE. 32 CHOLESTEROL INTERPRETATION: Desirable: Less than 200 MG/DL Borderline-High Risk: 200-239 MG/DL High-Risk: 240 MG/DL and over 33 HDL INTERPRETATION: Undesirable: High Risk: Less than 40 MG/DL Desirable: Low Risk: Greater than 60 MG/DL 34 LDL INTERPRETATION: Low Risk Optimal Level: LDL Less than 100 MG/DL Near or Above Optimal: LDL 100-129 MG/DL Borderline High Risk: LDL 130-159 MG/DL High Risk: LDL 160-189 MG/DL Very High Risk: LDL Greater than 189 MG/DL 35 Recommended INR for Patients on Oral Anticoagulants Prophylaxis 2.0 - 3.0 Treatment of thrombosis 2.0 - 3.0 Prevention of embolism 2.0 - 3.0 Prevention of embolism from prosthetic heart valves 2.5 - 3.5 36 DIAGNOSIS,TREATMENT,AND THERAPY MUST BE BASED ON THE INR VALUE ALONE. 37 Recommended INR for Patients on Oral Anticoagulants Prophylaxis 2.0 - 3.0 Treatment of thrombosis 2.0 - 3.0 Prevention of embolism 2.0 - 3.0 Prevention of embolism from prosthetic heart valves 2.5 - 3.5 38 DIAGNOSIS,TREATMENT,AND THERAPY MUST BE BASED ON THE INR VALUE ALONE. 39 Recommended INR for Patients on Oral Anticoagulants Prophylaxis 2.0 - 3.0 Treatment of thrombosis 2.0 - 3.0 Prevention of embolism 2.0 - 3.0 Prevention of embolism from prosthetic heart valves 2.5 - 3.5 40 DIAGNOSIS,TREATMENT,AND THERAPY MUST BE BASED ON THE INR VALUE ALONE. 41 Anion gap measurement may be of limited value in the presence of any alkalosis, especially in a combined acid base disorder. . 42 A metabolite of Naproxen, O-desmethylnaproxen, has been shown to interfere with the Jendrassik-Maggi method for measuring total bilirubin. Samples from patients who have taken Naproxen have shown spurious elevation in total bilirubin levels. 43 Because ethnic data is not always readily available, this report includes an eGFR for both -Americans and non- Americans. The National Kidney Disease Education Program (NKDEP) does not endorse the use of the MDRD equation for patients that are not between the ages of 18 and 70, are , have extremes of body size, muscle mass, or nutritional status, or are non- or non-. According to the National Kidney Foundation, irrespective of diagnosis, the stage of the disease is based on the level of kidney function: Stage Description GFR(mL/min/1.73 m(2)) 1 Kidney damage with normal or decreased GFR 90 2 Kidney damage with mild decrease in GFR 60-89 3 Moderate decrease in GFR 30-59 4 Severe decrease in GFR 15-29 5 Kidney failure <15 (or dialysis) 44 WBC COUNT CONFIRMED BY SMEAR ESTIMATE 45 Recommended INR for Patients on Oral Anticoagulants Prophylaxis 2.0 - 3.0 Treatment of thrombosis 2.0 - 3.0 Prevention of embolism 2.0 - 3.0 Prevention of embolism from prosthetic heart valves 2.5 - 3.5 46 DIAGNOSIS,TREATMENT,AND THERAPY MUST BE BASED ON THE INR VALUE ALONE. Procedures Date Code Description Status 01/13/2019 49369 EKG, at Least 12 Leads w/Interpretation and Report Completed 09/24/2013 [id number] Colonoscopy Completed 08/30/2013 57400 Destruction,Benign Lesions, Up To 14 Lesions Completed 08/04/2013 77258 Destruction,Benign Lesions, Up To 14 Lesions Completed 05/17/2013 85591 Destruction,Benign Lesions, Up To 14 Lesions Completed 04/27/2013 74424 Destruction,Benign Lesions, Up To 14 Lesions Completed 09/12/2011 29944 EKG, at Least 12 Leads w/Interpretation and Report Completed 06/09/2007 32685 Destruction,Benign Lesions, Up To 14 Lesions Completed 05/21/2006 39526 Excision Of Skin Tags-Up To 15 Completed Encounters Type Date Location Provider Dx Diagnosis Office Visit 01/13/2019 Main Office Satish Chaudhari, I20.0 Unstable angina 8:15a Office Visit 11/27/2017 Main Office Germaine Stokes, J06.9 Acute upper 3:30p HARNESS TIER respiratory infection, unspecified Office Visit 01/07/2017 Main Office Angelique Ramsey J18.9 Pneumonia, 4:45p FAMILY HEALTH NURSE PRACTITIONER-C unspecified organism Office Visit 05/09/2016 Main Office Tapan Gould M.D. J20.9 Acute bronchitis, 4:45p unspecified Office Visit 10/06/2015 Main Office Angelique Ramsey, Z00.00 Encntr for general 4:30p FAMILY HEALTH NURSE PRACTITIONER-C adult medical exam w/o abnormal findings Office Visit 09/15/2015 Main Office Jg Rodriguez J06.9 Acute upper 4:30p III, FAMILY HEALTH NURSE PRACTITIONER-C respiratory infection, unspecified Office Visit 09/05/2015 Main Office Jg Rodriguez J06.9 Acute upper 4:45p III, FAMILY HEALTH NURSE PRACTITIONER-C respiratory infection, unspecified Office Visit 03/30/2014 Main Office Angelique Ramsey, 466.0 Bronchitis Acute 4:45p FAMILY HEALTH NURSE PRACTITIONER-C Office Visit 03/16/2014 Main Office Angelique Ramsey, 466.0 Bronchitis Acute 3:45p FAMILY HEALTH NURSE PRACTITIONER-C Office Visit 09/16/2012 Main Office Angelique Ramsey, 466.0 Bronchitis Acute 4:15p FAMILY HEALTH NURSE PRACTITIONER-C Office Visit 10/24/2011 Main Office Tapan Gould M.D. 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 477.9 Rhinitis Allergic Cause Unspec 786.59 Pain Chest Other 078.10 Viral Warts Unspec Office Visit 11/10/2004 11:15a Main Office Sammie Barahona 786.2 Cough Olya Mullins Office Visit 09/05/2004 4:15p Main Office Tapan Gould M.D. 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 & Foot Other & Unspec Plan of Treatment Future Appointment(s):02/10/2019 2:15 pm - Tapan Gould M.D. at Main [id number] - Sammie Mullins M.D.R07.89 Other chest painComments:PT HAS HAD SX FOR 2-3 WEEKS OF EPISODIC CHEST/ NECK/ HEAD PRESSURE WITH DYSPNEA WITH EXERTION , RESOLVING WITH REST AND ALSO AT REST AT TIMES. NOW LIKELY SUPERIMPOSED VIRAL ILLNESS OR ATYPICAL BACTERIALINFECTION WITH COUGH AND NASAL CONGESTION FOR PAST 5 DAYS. DISCUSSED CONCERN FOR THYROID STORM/ HYPERTHYROID OR PHEOCHROMOCYTOMA. VERY EPISODIC BUT VERY SYMPTOMATIC. ALSO CONCERN FOR POSSIBLE UNSTABLE ANGINA. NO CHEST DISCOMFORT CURRENTLY. DR. CHAUDHARI DISCUSSED WITH DR. CRESPO AT VISIT. PT'S MOM SEES DR. CAPPS (JED MOONEY). FAM HX CAD IN GM'S, PT UNCLEAR OF MOM'S CARDIAC ISSUES BUT SOUNDSLIKE SHE HAD ANGINA SX BUT CATH OK IN 2009. RECENT BW AT ER INCLUDING CMP, CBC, D-DIMER, TROPONIN NEG. WILL CHECK TSH/T4/T3 AND ALSO METANEPHRINES PLASMA. SHE WILL BUTTON SEWER HAND URINE JUG FOR 24 HOUR URINE METANEPHRINES WHEN GETS BW.Follow up:. -- REFER FORWARDER OPERATOR LINDA FOR EXERTIONAL CHEST PAIN AND DYSPNEA- DR. CAPPS SEES PT'S MOM -- NOTE FOR WORKRecommendations:-- SEE THE FORWARDER OPERATOR FOR A CONSULT -- IF WORSENING, CALL 911 -- OUT OF WORK TODAY AND SZOJIDFEZ38.9 Acute bronchitis, unspecifiedRecommendations:-- I THINK YOU HAVE BRONCHITIS AND POSSIBLY SINUS INFECTION -- TAKE THE DOXYCYCLINE ANTIBIOTIC WITH FULL GLASS OF WATER TWICE PER DAY FOR 10 DAYS. DO NOT LIE DOWN DIRECTLY AFTER TAKING IT. -- DO NOT TAKE CALCIUM PRODUCTS (DAIRY PRODUCTS, YOGURT/MILK/ ALMOND MILK) OR CALCIUM SUPPLEMENTS WITHIN 2 HOURSOF TAKING THE DOXYCYCLINE THEY INTERFERE WITH ABSORPTION -- IT CAN CAUSE STOMACH UPSET- IT IS OKAY TO TAKE DOXYCYCLINE WITH FOOD/ LIGHT MEAL -- DOXYCYCLINE ALSO CAUSES SUN SENSITIVITY- BE CAREFUL TO AVOID DIRECT SUN EXPOSURE- COVER UP OR AVOID THE SUN WHILE ON THIS MEDICATION - - EAT YOGURT DAILY(JUST NOT WITHIN 2 HOURS OF DOXYCYCLINE DOSE) OR TAKE PROBIOTIC ZOERSU84.0 Tachycardia, unspecifiedNew Labs:TSH (Thyroid Stim Horm), Ordered: 01/25/19Free T4 (Free Thyroxine), Ordered: 01/25/19Metanephrines Plasma , Ordered: 01/25/19T3 Free, Ordered: 01/25/19Urine Metanephrines 24HR, Ordered: 01/25/19Follow up:.Recommendations:-- GET THE BLOODWORK DONE TO CHECK YOUR THYROID FUNCTION AND METANEPHRINES- THEN BUTTON SEWER HAND URINE JUG TO DO THE 24 HOUR URINE TESTTO MAKE SURE YOU DON'T HAVE PHEOCHROMOCYTOMA -- AVOID DECONGESTANTS LIKE SUDAFED, NYQUIL, DAYQUIL -- IT IS SAFE TO TAKE CORICIDIN HBP NEEDED. YOU CAN TAKE PLAIN MUCINEX OR MUCINEX DM (OR PLAIN ROBITUSSIN OR PLAIN ROBITUSSIN DM- THIS IS THE SAME MEDICINE IN MUCINEX=GUAIFENESIN)
[2019-02-01] MEDS ORDERED: Bivalirudin(*) 250 MG VIAL ONE (19:22)
[2019-02-01] MEDS: Aspirin 81 mg CHEW TAB* 81 MG TAB.CHEW PO ONE ×2 (19:24→19:25)
[2019-02-01 19:28] LABS: ABS Basophils 0 10^3/ul (0-0.2); ABS Eosinophils 0.1 10^3/ul (0-0.6); ABS Lymphocytes 3.5 10^3/ul (1.0-4.8); ABS Monocytes 0.6 10^3/ul (0-0.8); ABS Neutrophils 5.6 10^3/ul (1.5-7.7); ABS Nucleated RBC 0 10^3/ul; Eosinophil % 0.6 %; Hematocrit 45 % (35-47); Hemoglobin 15.5 g/dl (12.0-16.0); Lymphocyte % 35.8 %; Mean Corpuscular HGB Conc 35 g/dl (31-36); Mean Corpuscular Hemoglobin 31 pg (27-31); Mean Corpuscular Volume 90 fL (80-97); Mean Platelet Volume 8.3 fL (7.4-10.4); Nucleated Red Blood Cells % 0; Platelet Count 305 10^3/ul (150-450); Red Blood Count 4.97 10^6/ul (4.00-5.40); Red Cell Distribution Width 13 % (10.5-15); White Blood Count 9.7 10^3/ul (3.5-10.8)
[2019-02-01 19:37] LABS: Activated Partial Thrombo Time 27.8 seconds (26.0-36.3); INR 1.02 (0.77-1.02)
[2019-02-01 19:51] LABS: ALT 10 U/L (7-52); AST 20 U/L (13-39); Albumin 4.7 g/dL (3.2-5.2); Albumin/Globulin Ratio 1.8 (1-3); Alkaline Phosphatase 66 U/L (34-104); Anion Gap 8 mmol/L (2-11); BUN/Creatinine Ratio 16.9 (8-20); Blood Urea Nitrogen 12 mg/dL (6-24); CO2 Carbon Dioxide 26 mmol/L (22-32); Calcium 9.8 mg/dL (8.6-10.3); Chloride 105 mmol/L (101-111); Creatine Kinase 122 U/L (10-223); EGFR African American 103.4 (>60); EGFR Non-African American 85.5 (>60); Globulin 2.6 g/dL (2-4); Glucose 120 mg/dL (70-100); LDL Cholesterol Direct 130 mg/dL; Potassium 3.7 mmol/L (3.5-5.0); Sodium 139 mmol/L (135-145); Total Protein 7.3 g/dL (6.4-8.9)
[2019-02-01 20:03] LABS: Troponin I 0.53 ng/mL (<0.04)
[2019-02-01] MEDS ORDERED: Zolpidem TAB* 5 MG PO PRN (20:53)
[2019-02-01] MEDS ORDERED: oxyCODONE/Acetamin 5/325 MG* TAB PO PRN (20:53)
[2019-02-01] MEDS ORDERED: Acetaminophen TAB* 325 MG PO PRN (20:53)
[2019-02-01] MEDS ORDERED: Docusate CAP* 100 MG PO PRN (20:53)
[2019-02-01] MEDS ORDERED: Nitroglycerin TAB 0.4 MG* 0.4 MG TAB SL PRN (20:53)
[2019-02-01] MEDS ORDERED: Ticagrelor* 90 MG TAB PO SCH (21:00)
[2019-02-01] MEDS ORDERED: Atorvastatin* 80 MG TAB PO ONE (21:06)
[2019-02-01] MEDS ORDERED: NS 0.9% 1000 ML** 400 ML IV SCH (21:30)
[2019-02-01] MEDS: Metoprolol Tartrate TAB* 25 MG PO SCH ×2 (21:41→22:56)
--- NOTE | 2019-02-01 21:47 | HP ---
CC: Dr. Chaudhari at [facility]; Dr. Joe * ADMISSION HISTORY AND PHYSICAL: DATE OF ADMISSION: 02/01/19. INDICATION FOR ADMISSION: Chest pain, acute myocardial infarction. HISTORY OF PRESENT ILLNESS: The patient is a 53-year-old female with little past medical history, who came to the emergency room because of crushing chest pain. The patient has been having crescendo angina for past 3 weeks. When she has the chest pain, it is a heaviness in her chest that radiates up into her jaw , lasts for a couple a minutes, and then resolved on its own today. However, she had a severe episode lasting 45 minutes to an hour or so. On arrival to the emergency room, she was still having this discomfort. Her initial EKG demonstrated ST segment elevations of 1.5 mm in leads V2 and V3 with reciprocal changes in the lateral leads. Compared to an EKG from January 13, these EKG changes are new. PAST MEDICAL HISTORY: Significant for seasonal allergies. PAST SURGICAL HISTORY: Foot surgery 5 years ago, resulting in a DVT. She was on anticoagulation for 6 months. MEDICATIONS: Outpatient medications, allergy medications. No other medications. ALLERGIES: Medical allergies none. FAMILY HISTORY: Was not obtained, as it was an emergency. SOCIAL HISTORY: She is . She denies tobacco or alcohol use. She previously worked at [employer] in the [employer]. She gets regular exercise. REVIEW OF SYSTEMS: Negative for fevers and chills. Negative for changes in bowel or bladder habits. Negative for changes in weight. Other 12-point review is unremarkable. PHYSICAL EXAMINATION VITAL SIGNS: On physical exam, height is 5 feet 3 inches, weight is 140 pounds , temperature 98.6, heart rate is 105, blood pressure 122/88, respiratory rate is 29, oxygen saturation 98% on room air. HEENT: Sclerae are anicteric. Oropharynx is pink without erythema. Carotids are 2+ without bruits. NECK: JVD is normal. Thyroid is normal. LUNGS: Clear to auscultation. CARDIAC EXAM: S1, S2 without any murmurs, rubs or gallops. EXTREMITIES: Show no edema. She has 2+ pulses throughout. NEUROLOGIC: The patient is awake, alert, and oriented. She moves all 4 extremities equally. DIAGNOSTIC STUDIES/LAB DATA: Laboratory studies: CBC within normal limits. Chemistries are pending. EKG as above. Chest x-ray is unremarkable. IMPRESSION AND PLAN: This is a 53-year-old female who has been having crescendo angina for 2 to 3 weeks. She came to the emergency room with a prolonged episode of chest pain. She has new ischemic EKG changes. The patient qualifies for an acute STEMI evaluation. The patient is going to go to the cardiac label folder for evaluation. The patient was given nitroglycerin , heparin, Brilinta, and aspirin in the emergency room. TIME SPENT: I spent approximately an hour and 15 minutes in the care of this patient, both in direct care and in documentation. [id number]/CPS #: [id number] BENI
[2019-02-02 00:38] LABS: Creatine Kinase 151 U/L (10-223)
[2019-02-02 00:42] LABS: CKMB ng/mL 18.4 ng/mL (0.6-6.3)
[2019-02-02 00:53] LABS: Troponin I 1.54 ng/mL (<0.04)
[2019-02-02 05:48] LABS: ABS Basophils 0 10^3/ul (0-0.2); ABS Eosinophils 0.1 10^3/ul (0-0.6); ABS Lymphocytes 1.9 10^3/ul (1.0-4.8); ABS Monocytes 0.8 10^3/ul (0-0.8); ABS Neutrophils 6.3 10^3/ul (1.5-7.7); ABS Nucleated RBC 0 10^3/ul; Eosinophil % 0.9 %; Hematocrit 38 % (35-47); Hemoglobin 13.1 g/dl (12.0-16.0); Lymphocyte % 20.8 %; Mean Corpuscular HGB Conc 34 g/dl (31-36); Mean Corpuscular Hemoglobin 31 pg (27-31); Mean Corpuscular Volume 91 fL (80-97); Mean Platelet Volume 8.2 fL (7.4-10.4); Nucleated Red Blood Cells % 0.1; Platelet Count 233 10^3/ul (150-450); Red Blood Count 4.21 10^6/ul (4.00-5.40); Red Cell Distribution Width 13 % (10.5-15); White Blood Count 9.1 10^3/ul (3.5-10.8)
[2019-02-02 05:59] LABS: ALT 9 U/L (7-52); AST 24 U/L (13-39); Albumin 3.7 g/dL (3.2-5.2); Albumin/Globulin Ratio 1.8 (1-3); Alkaline Phosphatase 52 U/L (34-104); Anion Gap 5 mmol/L (2-11); BUN/Creatinine Ratio 14.5 (8-20); Blood Urea Nitrogen 8 mg/dL (6-24); CO2 Carbon Dioxide 24 mmol/L (22-32); Calcium 8.7 mg/dL (8.6-10.3); Chloride 109 mmol/L (101-111); Cholesterol 151 mg/dL; Creatine Kinase 161 U/L (10-223); EGFR African American 138.9 (>60); EGFR Non-African American 114.8 (>60); Globulin 2.1 g/dL (2-4); Glucose 101 mg/dL (70-100); HDL Cholesterol 42.1 mg/dL; LDL Cholesterol 96 mg/dL; Sodium 138 mmol/L (135-145); Total Protein 5.8 g/dL (6.4-8.9); Triglycerides 67 mg/dL
[2019-02-02 06:03] LABS: CKMB ng/mL 21.7 ng/mL (0.6-6.3)
[2019-02-02] MEDS: Ticagrelor* 90 MG TAB PO SCH ×3 (06:21→20:45)
--- NOTE | 2019-02-02 08:46 | ECHO ---
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 Technical Comments: The study quality is fair. Completed at 0830. Left Ventricle: The left ventricular chamber size is normal. There is no left ventricular hypertrophy. There are multiple regional wall motion abnormalities. There is mildly decreased left ventricular systolic function. The estimated ejection fraction is 40-45%. Abnormal left ventricular diastolic function is observed. There is an E to A reversal in the mitral valve flow pattern suggestive of diastolic dysfunction. The mid anteroseptal, mid anterior, apical septal, and apical lateral wall segments are hypokinetic (score 2). The apical anterior wall segment is akinetic (score 3). Overall wallmotion score index is 2.20 Left Atrium: The left atrial chamber size is normal. Right Ventricle: Moderator Band present. The right ventricular cavity size is normal. The right ventricular global systolic function is normal. Right Atrium: The right atrial cavity size is normal. Aortic Valve: The aortic valve is trileaflet. The aortic valve leaflets are mildly thickened. There is trace to mild aortic regurgitation. There is no evidence of aortic stenosis. Mitral Valve: The mitral valve leaflets are mildly thickened. There is a trace of mitral regurgitation. There is no evidence of mitral stenosis. Tricuspid Valve: The tricuspid valve leaflets are normal. There is a physiologic tricuspid regurgitation. Unable to estimate the right ventricular systolic pressure. There is no tricuspid stenosis. Pulmonic Valve: The pulmonic valve appears normal. There is a trace pulmonic regurgitation. There is no pulmonic stenosis. Pericardium: There is no significant pericardial effusion. Aorta: There is no dilatation of the ascending aorta. There is no dilatation of the aortic arch. The aortic root is normal in size. Pulmonary Artery: The main pulmonary artery appears normal. Venous: The inferior vena cava is dilated. There is an approximate 50% respiratory change in the inferior vena cava dimension. Summary: There was not any prior study for comparison. Conclusions There is mildly decreased left ventricular systolic function. There are multiple regional wall motion abnormalities. The estimated ejection fraction is 40-45%. The mid anteroseptal, mid anterior, apical septal, and apical lateral wall segments are hypokinetic (score 2). The apical anterior wall segment is akinetic (score 3). The right ventricular global systolic function is normal. There is trace to mild aortic regurgitation. There is a trace of mitral regurgitation. There is a physiologic tricuspid regurgitation. Unable to estimate the right ventricular systolic pressure. There is no significant pericardial effusion. Measurements Name Value Normal Range RVIDd (AP) 2D 3 cm (0.9 - 2.6) RVDdMajor (2D) 3.3 cm (2.2 - 4.4) RAd ISD 4CH 4.2 cm (3.4 - 4.9) RA (A4C)W 3.4 cm (2.9 - 4.6) IVSd (2D) 1 cm (0.6 - 1) LVPWd (2D) 1 cm (0.6 - 1) LVIDd (2D) 3.8 cm (3.6 - 5.4) LVIDs (2D) 3.1 cm - LV FS (2D) 20 % (25 - 45) Aortic Annulus 1.9 cm (1.4 - 2.6) Ao root diameter (2D) 3.1 cm (2.1 - 3.5) Ascending Ao 3 cm (2.1 - 3.4) Aortic arch 2.2 cm (1.8 - 3.4) LA dimension (AP) 2D 2.5 cm (2.3 - 3.8) LAd ISD 4CH 4.3 cm (2.9 - 5.3) LA ISD 4CH W 3.8 cm (2.5 - 4.5) Name Value Normal Range LA ESV BP (A/L) index 31 ml/m2 - Name Value Normal Range MV E-wave Vmax 0.4 m/sec - MV deceleration time 264 msec - MV A-wave Vmax 0.6 m/sec - MV E:A ratio 0.6 ratio - LV septal e' Vmax 0.06 m/sec - LV lateral e' Vmax 0.06 m/sec - LV E:e' septal ratio 6.7 ratio - LV E:e' lateral ratio 6.7 ratio - Name Value Normal Range AV Vmax 1 m/sec - AV VTI 18 cm - AV peak gradient 4 mmHg - AV mean gradient 2 mmHg - LVOT Vmax 0.9 m/sec - LVOT VTI 16 cm - LVOT peak gradient 3 mmHg - LVOT mean gradient 2 mmHg - ANGIE Vmax 0.6 m/sec - Name Value Normal Range IVC diameter 2.2 cm - Name Value Normal Range PV Vmax 0.7 m/sec - PV peak gradient 2 mmHg - Wallmotion BAS Not Seen BA Not Seen BAL Not Seen JENNIFER Not Seen BI Not Seen BIS Not Seen MAS Hypokinetic MA Hypokinetic MAL Not Seen MIL Not Seen MD Not Seen MIS Not Seen Hypokinetic AA Akinetic AL Hypokinetic AI Not Seen APEX Hypokinetic
[2019-02-02] MEDS: Enoxaparin(*) 40 MG/0.4 ML SYR SUBCUT SCH (08:47)
[2019-02-02] MEDS: Aspirin 81 mg CHEW TAB* 81 MG TAB.CHEW PO SCH (08:47)
[2019-02-02] MEDS: DOXYCYCLINE 100 MG PO SCH ×2 (08:48→20:50)
[2019-02-02] MEDS ORDERED: Metoprolol Succinate XL TAB* 25 MG PO SCH ×2 (09:00→21:00)
[2019-02-02] MEDS ORDERED: Lisinopril TAB* 5 MG PO SCH (11:00)
[2019-02-02 13:02] LABS: Creatine Kinase 158 U/L (10-223)
[2019-02-02 13:06] LABS: CKMB ng/mL 16.1 ng/mL (0.6-6.3)
[2019-02-02 13:09] LABS: Troponin I 1.38 ng/mL (<0.04)
--- NOTE | 2019-02-02 14:47 | CATH ---
CC: Dr. Tapan Gould; Dr. Alvarez Leal, [facility] * CARDIAC CATHETERIZATION AND INTERVENTIONAL REPORT: DATE OF PROCEDURE: 02/01/19 - ROOM #ICU-03 REASON FOR THE PROCEDURE: The patient presents with acute coronary syndrome, suggests the findings of probable non-ST segment elevation anterior septal wall myocardial infarction with prolonged chest discomfort. The procedure was coronary arteriography, left heart catheterization, left ventriculography, balloon angioplasty and placement of a 3.5 x 28 mm long Synergy drug-eluting stent post dilated to 3.85 mm. CONSENT: The patient was interviewed and examined in the emergency room where the risk and benefits were explained. She understood them and wished to proceed. Laboratory results were initially not available before the time of the procedure , but became available during the procedure - hemoglobin and hematocrit 15.5 and 45 with a platelet count of 305,000, BUN and creatinine of 12 and 0.7. Sodium 139, potassium 3.7, chloride 105, bicarb 26. Troponin 0.53. APPROACH UTILIZED: The right radial artery was assessed under ultrasound in the cardiovascular laboratory and found to be acceptable for an approach, and as such, this was utilized. EQUIPMENT UTILIZED: 1. Right radial artery sheath - a 6-[place]an Glidesheath. 2. Diagnostic guidewire was a Dawson curve 260 length exchange guidewire. 3. Diagnostic coronary arteriography catheter included a radial TIG4 curve 5- [place]an catheter. 4. Interventional guide catheter was a VL3.5 6-Sing[place]an catheter, a VL3 curve 6- Singaporean guide catheter. 5. The interventional wire was a All Star 190 cm guidewire. 6. Balloon angioplasty catheter - was a 3.0 x 12 mm long Emerge balloon. 7. The stent utilized was a 3.5 x 28 mm long Synergy drug-eluting stent. 8. The post stent deployment balloon catheter - was a 3.75 x 15 mm long NC Emerge balloon. 9. Closure device utilized was a radial artery band from [employer]. MEDICATIONS GIVEN: Included a radial artery cocktail of 300 mcg of nitroglycerin and 3 mg of verapamil and Angiomax bolus and an Angiomax drip was started with the patient after the ACT was found to be subtherapeutic from the initial heparin bolus. The patient had already received a 4000 unit bolus heparin in the emergency room, 324 mg of aspirin, and 180 mg of Brilinta. DESCRIPTION OF PROCEDURE: The patient was brought to the cardiovascular laboratory where a formal time-out was performed. She was prepped and draped in sterile fashion and the right radial artery area was anesthetized with 1% lidocaine. Under ultrasound guidance, the right radial artery was cannulated and the sheath was placed. Diagnostic coronary arteriography was carried out, followed by left heart catheterization and left ventriculography. Following this, the decision was made to intervene into the totally occluded proximal LAD. The guide catheter was placed. The ACT was checked and found to be subtherapeutic and an Angiomax bolus and an Angiomax drip was given. The guidewire was advanced easily down the subtotally occluded LAD and balloon angioplasty was performed utilizing the 3.0 x 12 mm long Emerge balloon. This was followed by placement of a 3.5 x 28 mm long Synergy drug-eluting stent post dilated to 3.85 mm with high pressure utilizing a 3.75 x 15 mm long NC Emerge balloon. Following this, the artery was assessed for results. At the end of the case, the catheters were removed and the sheath was removed and hemostasis was obtained with a Vasc Band. The reverse Barbeau was a B. The total contrast utilized was a total of 110 cc of Omnipaque dye. This included the left ventriculogram which consisted of 24 cc of Omnipaque dye at a rate of 12 cc per second. Radiation exposure included 10.1 minutes of fluoro time. The air kerma radiation was 928 mGy. The DAP radiation was 5687 microgray per m2. RESULTS: HEMODYNAMIC DATA: Left heart catheterization - central aortic pressure recorded at 108/69 with a mean of 89, left ventricular pressure 106 over left ventricular end- diastolic pressure of 15. LEFT VENTRICULOGRAPHY: Performed in the WATERS projection revealed moderate to severe hypokinesis of the mid anterior wall with preservation of motion to the apical region albeit slightly hypokinetic with normal wall motion of the inferior wall. Overall ejection fraction estimated at 40%. CORONARY ARTERIOGRAPHY: A. Right coronary artery - a dominant vessel supplying several thin acute marginal branches with a moderate size acute marginal branch just prior to turning on to the inferior surface of the heart which supplied the distal inferior septal region. The continuation supplied a PDA and several posterior left ventricular branches. There was mild luminal irregularity seen at the very proximal area of 10% to 15% with a 20% narrowing in the proximal segment. Of note, there was good collateral blood flow seen from the acute marginal branch, which extended to the inferoapical region to the left anterior descending artery that retrograde filled the LAD up to the beginning point and had slow filling into the diagonal branches. B. Left coronary artery: 1. Left main - widely patent. 2. Left anterior descending artery - totally occluded at its proximal portion with slow filling collaterals [id number] flow from the circumflex obtuse marginal branches. 3. Circumflex artery supplying a high first thin obtuse marginal branch and a second thin obtuse marginal branch followed by a moderate bifurcating obtuse marginal branch and then ending in a low-lying obtuse marginal branch. Mild luminal irregularities are noted. No significant obstruction was noted throughout the course. INTERVENTION INTO TOTALLY OCCLUDED PROXIMAL LEFT ANTERIOR DESCENDING ARTERY: On reconstitution of flow in the left anterior descending artery after balloon angioplasty, there is a segment of mild disease noted proximally. Stenting in the end was carried out then across the long segment utilizing the 3.5 x 28 mm long Synergy drug-eluting stent post dilated to 3.85 utilizing high pressure and the noncompliant 3.75 x 15 mm long NC Emerge balloon, with 0% residual stenosis and LIBERTAD III flow with no dissection seen.. Of note, the first diagonal branch was noted to have an 80% obstruction in its ostial portion , but it was a very thin vessel that appeared to be well less than 1.5 mm. It subtended a small area of myocardium. OVERALL ASSESSMENT: Successful revascularization of the proximal left anterior descending with a balloon angioplasty and stenting utilizing a 3.5 x 28 mm long Synergy drug- eluting stent post dilated to 3.85 as described above. Of note, the ostium of the first diagonal branch, which was a small caliber vessel had a residual 80% blockage which will be treated medically. Part of this could be spasm as well. Dual-antiplatelet therapy for 1 year's time in addition to beta clayton therapy and SHAUNA inhibitor therapy and high dose statin therapy will be pursued. An echocardiogram will be obtained in the a.m. to assess overall LV systolic function as a baseline to serve for reevaluation after a period of appropriate medical management time to see residual left ventricular systolic dysfunction. [id number]/[facility] #: [id number] [facility]
[2019-02-02] MEDS ORDERED: Atorvastatin* 80 MG TAB PO SCH (17:00)
[2019-02-02] MEDS: Atorvastatin* 80 MG TAB PO SCH (20:45)
[2019-02-03 05:24] LABS: BUN/Creatinine Ratio 16.9 (8-20); Calcium 8.8 mg/dL (8.6-10.3); EGFR African American 114.5 (>60); EGFR Non-African American 94.6 (>60); Potassium 4.2 mmol/L (3.5-5.0)
[2019-02-03] MEDS: Aspirin 81 mg CHEW TAB* 81 MG TAB.CHEW PO SCH (08:27)
[2019-02-03] MEDS: Metoprolol Succinate XL TAB* 25 MG PO SCH ×2 (08:27→21:30)
[2019-02-03] MEDS: DOXYCYCLINE 100 MG PO SCH ×2 (08:27→21:30)
[2019-02-03] MEDS: Ticagrelor* 90 MG TAB PO SCH ×2 (08:27→21:30)
[2019-02-03] MEDS: Enoxaparin(*) 40 MG/0.4 ML SYR SUBCUT SCH (08:29)
[2019-02-03 20:36] LABS: ABS Basophils 0 10^3/ul (0-0.2); ABS Eosinophils 0.1 10^3/ul (0-0.6); ABS Lymphocytes 2.6 10^3/ul (1.0-4.8); ABS Monocytes 0.7 10^3/ul (0-0.8); ABS Neutrophils 4.8 10^3/ul (1.5-7.7); ABS Nucleated RBC 0 10^3/ul; Eosinophil % 1.2 %; Hematocrit 41 % (35-47); Hemoglobin 14.1 g/dl (12.0-16.0); Lymphocyte % 31.4 %; Mean Corpuscular HGB Conc 34 g/dl (31-36); Mean Corpuscular Hemoglobin 31 pg (27-31); Mean Corpuscular Volume 91 fL (80-97); Mean Platelet Volume 8.3 fL (7.4-10.4); Nucleated Red Blood Cells % 0; Platelet Count 268 10^3/ul (150-450); Red Blood Count 4.52 10^6/ul (4.00-5.40); Red Cell Distribution Width 12 % (10.5-15); White Blood Count 8.3 10^3/ul (3.5-10.8)
[2019-02-03] MEDS: Atorvastatin* 80 MG TAB PO SCH (21:30)
[2019-02-04 05:05] LABS: BUN/Creatinine Ratio 18.3 (8-20); Calcium 9.1 mg/dL (8.6-10.3); EGFR African American 103.4 (>60); EGFR Non-African American 85.5 (>60); Potassium 4.3 mmol/L (3.5-5.0)
[2019-02-04] MEDS: DOXYCYCLINE 100 MG PO SCH (09:18)
[2019-02-04] MEDS: Aspirin 81 mg CHEW TAB* 81 MG TAB.CHEW PO SCH (09:18)
[2019-02-04] MEDS: Metoprolol Succinate XL TAB* 25 MG PO SCH (09:18)
[2019-02-04] MEDS: Ticagrelor* 90 MG TAB PO SCH (09:18)
[2019-02-04] MEDS: Enoxaparin(*) 40 MG/0.4 ML SYR SUBCUT SCH (09:19)
[2019-02-04 11:08] VITALS: BP 108/71
--- NOTE | 2019-02-04 13:43 | DS ---
CC: Dr. Alvarez Leal, [facility]; Dr. Tapan Gould DISCHARGE SUMMARY: DATE OF ADMISSION: 02/01/19 DATE OF DISCHARGE: 02/04/19 PRINCIPAL DIAGNOSIS: Non-ST elevation anterior wall myocardial infarction. SECONDARY DIAGNOSIS: Coronary artery disease. HISTORY OF PRESENT ILLNESS: The patient is a pleasant 53-year-old female who had given a history of crescendo angina type symptoms over the past several weeks. She had a prolonged episode and presented to the emergency room and on arrival her initial EKG had subtle ST segment changes in her early precordial leads with T-wave inversion in aVL. It suggested the findings of Q waves already in V1 and V2 with T- wave inversion noted. The degree of ST segment elevation was subtle not reaching more than 1 mm in V2 and V3. Her symptoms abated in the emergency room but because of the progressive nature of it, a bedside echocardiogram that had showed anterior wall motion abnormality, the decision was made to proceed with emergent cardiac catheterization. Cardiac catheterization revealed the presence of a totally occluded proximal LAD before any branches. A left ventriculogram revealed the presence of severe hypokinesis to the high anterolateral wall with mild hypokinesis of the apical and distal anterior wall. Overall EF estimated approximately 40%. She underwent successful stenting of the proximal LAD with a 3.5 x 28 mm long Synergy drug- eluting stent, post dilated to 3.85 to 3.9 mm with high pressure balloon inflation. HOSPITAL COURSE: Revealed her cardiac enzymes to go up only mildly starting from a presenting troponin of 0.53 to a peak troponin of 1.8. Her echocardiogram revealed multiple segmental global wall motion abnormalities with an EF of 40% to 45% with mid anteroseptal, mid anterior apical septal, apical lateral wall hypokinesis and apical anterior segment akinetic. She had no significant valvular pathology. During the course of the hospitalization, she was appropriately placed on high dose statin therapy, dual antiplatelet therapy, and beta-clayton therapy. Attempts at starting an SHAUNA inhibitor were made, however, her blood pressure dropped into the 70 to 80 range with this, and as such the SHAUNA inhibitor was held at this point and time and will be reconsidered as an outpatient. She was eventually up and about stable without significant problems. On the day of discharge, vital signs revealed blood pressure of 104/77 with a pulse in the 80s to 90s, respirations were 17 and O2 saturation was 96% on room air. Her neck was supple. No increased JVP. Carotids had good upstrokes and volume without bruits. Conjunctivae were pink. Sclerae clear. Lungs revealed no accessory muscle usage. There was good excursion. No active rales , rhonchi, or wheezes. Heart revealed no visible heaves. No palpable heaves or thrills. Normal S1, S2. There were no significant systolic or diastolic murmurs appreciated. Abdomen was soft, nontender without organomegaly. Extremities were without clubbing, cyanosis, ly pitting edema. The right radial pulse was intact. There was excellent antegrade flow down the right radial artery. Neuro: The patient was alert and oriented with normal mentation. Musculoskeletal: The patient walks with normal gait. Psychiatric: The patient with normal affect. The laboratory result on the day of discharge included a sodium of 138, a potassium of 4.3, chloride 106, bicarb 28, BUN and creatinine of 13 and 0.7. A B-natriuretic peptide was 64. Her hemoglobin A1c was 4.8. Her EKG on the day of discharge revealed Q waves in V1 and V2 with T-wave inversion seen in V1, V2 , V3, and aVL. There were no other acute ST-T wave changes. DISCHARGE MEDICATIONS: At the time of discharge, her medications included: 1. Aspirin 81 mg a day. 2. Lipitor 80 mg a day. 3. Metoprolol succinate 12.5 mg twice a day. 4. Ticagrelor 90 mg twice a day. 5. Sublingual nitroglycerin if needed. She also was maintained on her doxycycline 100 mg b.i.d. until she was completed with that and on her fluticasone spray. FOLLOWUP: She will be following up next week with Dr. Tapan Gould and also with Dr. Alvarez Leal. Follow up issues to be addressed will be whether an ACEI can be restarted at some point and/or increasing her beta clayton, also timing of readdressing overall LV systolic function , and elevated heart rate (no anemia or active infection was seen and patient reports having had a normal thyroid assessment by her family physician. [id number]/[facility] #: [id number] [facility]
== END 2019-02-04 11:15 | disposition home or self-care (01) | DRG 174 ==
LOC: ED 18:38 → CHICATH 19:45 → ICU 20:53
PROVIDERS: ADMIT Internal Medicine Cardiovascular Disease; ATTEND Internal Medicine Cardiovascular Disease
PROC: 4A023N7 Measurement of Cardiac Sampling and Pressure, Left Heart, Percutaneous Approach (ICD-10-PCS; 2019-02-01)
PROC: B2151ZZ Fluoroscopy of Left Heart using Low Osmolar Contrast (ICD-10-PCS; 2019-02-01)
PROC: B2111ZZ Fluoroscopy of Multiple Coronary Arteries using Low Osmolar Contrast (ICD-10-PCS; 2019-02-01)
PROC: 027034Z Dilation of Coronary Artery, One Artery with Drug-eluting Intraluminal Device, Percutaneous Approach (ICD-10-PCS; principal; 2019-02-01 14:00)
DX: I21.4 Non-ST elevation (NSTEMI) myocardial infarction (principal); I25.118 Atherosclerotic heart disease of native coronary artery with other forms of angina pectoris; J30.2 Other seasonal allergic rhinitis; Z79.82 Long term (current) use of aspirin; Z86.718 Personal history of other venous thrombosis and embolism; Z82.49 Family history of ischemic heart disease and other diseases of the circulatory system; Z80.7 Family history of other malignant neoplasms of lymphoid, hematopoietic and related tissues; Z72.89 Other problems related to lifestyle
CPT/HCPCS: 36415; 71045; 76937; 80048; 80053; 80061; 82550; 82553; 83036; 83605; 83721; 83880; 84484; 85025; 85347; 85610; 85730; 87641; 93005; 93306; 93458; 99156; 99157; 99284; A9270-GY; C1725; C1769; C1876; C1887; C9600-LD; J0583; J1644; J1650; J2250; J2270; J2405; J3010